=== PATIENT | male | born 1980 | race Two or more races ===

== ENCOUNTER 2021-03-18 10:41 | Emergency (ER) | payer MEDICAID, OTHER ==
[~2021-03-18] VITALS: Ht 172.7 cm; Wt 72.6 kg
[2021-03-18] MEDS ORDERED: cloNIDine HCL 0.1 MG TAB PO ONE (11:00)
[2021-03-18 12:59] LABS: Basophils # (auto) 0.1 10 ^3/uL (0-0.2); Basophils % (auto) 0.9 % (0.0-2.0); Eosinophils # (auto) 0.1 10 ^3/uL (0-0.8); Eosinophils % (auto) 1.4 % (0.0-7.0); Hematocrit 47.6 % (41.0-53.0); Hemoglobin 15.4 g/dL (13.5-17.5); Lymphocytes # (auto) 2.1 10 ^3/uL (0.4-5.4); Lymphocytes % (auto) 25.3 % (10.0-50.0); Mean Corpuscular Hemoglobin 27.4 pg (28.0-32.0); Mean Corpuscular Hgb Conc. 32.3 g/dL (32.0-36.0); Mean Corpuscular Volume 84.6 fL (80.0-100.0); Monocytes # (auto) 0.8 10 ^3/uL (0-1.3); Monocytes % (auto) 10.2 % (0.0-12.0); Neutrophils # (auto) 5.2 10 ^3/uL (1.6-8.6); Neutrophils % (auto) 62.2 % (37.0-80.0); Red Blood Cells 5.62 10^6/uL (4.5-5.90); Red Cell Distribution Width 13.4 % (11.8-14.3); White Blood Cell 8.3 10^3/uL (4.4-10.8)
[2021-03-18 13:00] LABS: Albumin 4.3 g/dL (3.4-5.0); Calcium 9.5 mg/dL (8.5-10.1); Potassium 4.4 mmol/L (3.5-5.1)
[2021-03-18 13:04] LABS: BUN/Creatinine Ratio 11.8; Bilirubin, Total 1.7 mg/dL (0.2-1.0); Total Protein 8.3 g/dL (6.4-8.2)
[2021-03-18 13:45] VITALS: BP 150/94
== END 2021-03-18 13:46 | disposition home or self-care (01) ==
LOC: ER 10:41
DX: I16.0 Hypertensive urgency (principal)
CPT/HCPCS: 36415; 80053; 85025; 93005

== ENCOUNTER 2022-05-01 10:09 | Emergency (ER) | payer MEDICAID ==
[~2022-05-01] VITALS: Ht 172.7 cm; Wt 77.9 kg
[2022-05-01 11:02] VITALS: BP 145/90
[2022-05-01] MEDS ORDERED: KETOROLAC TROMETH 30 MG/ML 1ML VIAL IM ONE (11:15)
[2022-05-01] MEDS ORDERED: CYCL-839 PO (12:20)
[2022-05-01] MEDS ORDERED: IBUP600T28 PO (12:21)
[2022-05-01] MEDS ORDERED: LIDO5DIS21 TOP (12:22)
== END 2022-05-01 12:26 | disposition home or self-care (01) ==
LOC: ER 10:24
DX: S16.1XXA Strain of muscle, fascia and tendon at neck level, initial encounter (principal); S29.012A Strain of muscle and tendon of back wall of thorax, initial encounter; F12.90 Cannabis use, unspecified, uncomplicated; Z79.899 Other long term (current) drug therapy; V49.09XA Driver injured in collision with other motor vehicles in nontraffic accident, initial encounter; Y93.89 Activity, other specified; Y92.411 Interstate highway as the place of occurrence of the external cause; Y99.8 Other external cause status
CPT/HCPCS: 72125; 72128; 96372; 99285; J1885

== ENCOUNTER 2022-10-13 14:06 | Emergency (ER) | payer MEDICAID ==
[~2022-10-13] VITALS: Ht 172.7 cm; Wt 78.9 kg
[~2022-10-13 14:06] MED LIST: CYCL-839 PO; IBUP1TAB5 PO; LIDO5DIS21 TOP
[2022-10-13 16:44] VITALS: BP 138/95
[2022-10-13] MEDS ORDERED: IBUP-1456 PO (17:38)
[2022-10-13] MEDS ORDERED: METH-1182 PO (17:38)
== END 2022-10-13 17:47 | disposition home or self-care (01) ==
LOC: ER 14:06
DX: S16.1XXA Strain of muscle, fascia and tendon at neck level, initial encounter (principal); S39.012A Strain of muscle, fascia and tendon of lower back, initial encounter; F15.90 Other stimulant use, unspecified, uncomplicated; Z79.1 Long term (current) use of non-steroidal anti-inflammatories (NSAID); Z79.899 Other long term (current) drug therapy; V89.2XXA Person injured in unspecified motor-vehicle accident, traffic, initial encounter; Y93.I9 Activity, other involving external motion; Y92.89 Other specified places as the place of occurrence of the external cause; Y99.8 Other external cause status
CPT/HCPCS: 72040; 72100